=== PATIENT | female | born 1995 | race Caucasian/White ===

== ENCOUNTER 2017-05-20 21:08 | Emergency (ER) | payer MEDICAID ==
[~2017-05-20] VITALS: Ht 162.6 cm; Wt 86.5 kg
[2017-05-20 21:32] VITALS: BP 139/85
== END 2017-05-20 21:33 | disposition home or self-care (01) ==
LOC: ER 21:09
DX: I10 Essential (primary) hypertension (principal); J06.9 Acute upper respiratory infection, unspecified; Z91.040 Latex allergy status
CPT/HCPCS: 99281

== ENCOUNTER 2017-10-09 20:34 | Emergency (ER) | payer MEDICAID, OTHER ==
[~2017-10-09] VITALS: Ht 162.6 cm; Wt 92.5 kg
[2017-10-09 20:53] VITALS: BP 145/75
[2017-10-09 21:09] LABS: URINE HCG NEGATIVE (NEG)
[2017-10-09 21:17] LABS: BASOPHILS % (AUTO) 0.3 % (0-1); EOSINOPHILS # (AUTO) 0.7 X10'3 (0-0.9); HEMATOCRIT 34.9 % (35.0-45.0); HEMOGLOBIN 12.3 g/dl (12.0-16.0); LYMPHOCYTES # (AUTO) 4.3 X10'3 (1.1-4.8); LYMPHOCYTES % (AUTO) 31.8 % (21-51); MEAN CORPUSCULAR HEMOGLOBIN 30.3 PG (27.0-31.0); MEAN CORPUSCULAR HGB CONC 35.1 % (33.0-36.5); MEAN CORPUSCULAR VOLUME 86.3 FL (78-98); MEAN PLATELET VOLUME 7.4 FL (7.4-10.4); MONOCYTES # (AUTO) 0.9 X10'3 (0-0.9); MONOCYTES % (AUTO) 6.7 % (2-12); NEUTROPHILS # (AUTO) 7.5 X10'3 (1.8-7.7); NEUTROPHILS % (AUTO) 56.2 % (42-75); PLATELET COUNT 293 X10'3 (140-440); RED BLOOD COUNT 4.05 X10'6 (4.20-5.60); RED CELL DISTRIBUTION WIDTH 12.6 % (11.5-14.5); WHITE BLOOD COUNT 13.4 X10'3 (4.5-11.0)
[2017-10-09 21:30] LABS: ALBUMIN 3.8 G/DL (3.4-5.0); ANION GAP 7 (8-16); BILIRUBIN,TOTAL 0.2 MG/DL (0.1-1.0); BLOOD UREA NITROGEN 10 MG/DL (7-18); CHLORIDE 102 MMOL/L (99-107); CREATININE 0.91 MG/DL (0.40-0.90); GLUCOSE 96 MG/DL (70-104); POTASSIUM 3.8 MMOL/L (3.5-5.1); SODIUM 138 MMOL/L (135-145); TOTAL CARBON DIOXIDE 28.7 MMOL/L (24-32); TOTAL PROTEIN 7.6 G/DL (6.4-8.2); eGFR 76 ML/MIN
[2017-10-09 21:30] LABS: CLARITY,URINE CLEAR (Clear); COLOR,URINE YELLOW (Yellow); GLUCOSE, URINE NEGATIVE (Neg); KETONES,URINE NEGATIVE (Neg); LEUKOCYTE ESTERASE ,URINE NEGATIVE (Neg); NITRITES, URINE NEGATIVE (Neg); OCCULT BLOOD,URINE NEGATIVE (Neg); PROTEIN,URINE NEGATIVE (Neg); UROBILINOGEN,URINE 0.2 E.U/dL (0.2-1.0)
[2017-10-09 21:31] LABS: ALANINE AMINOTRANSFERASE 20 U/L (12-78); ALKALINE PHOSPHATASE 65 IU/L (46-116); ASPARTATE AMINO TRANSFERASE 10 U/L (10-37); LIPASE 172 U/L (73-393)
[2017-10-09] MEDS ORDERED: LIDOcaine Viscous 15ml cup MM STA (21:35)
[2017-10-09] MEDS ORDERED: mag hydrox/Alum hydrox/simeth 30ml oral suspension PO ONE (21:35)
[2017-10-09] MEDS ORDERED: pantoprazole 40mg Tablet.DR PO STA (21:35)
[2017-10-09 21:36] LABS: UA COLLECTION TYPE CLN CATCH MIDSTREAM
[2017-10-09] MEDS ORDERED: PANT-47 PO (22:34)
== END 2017-10-09 22:42 | disposition home or self-care (01) ==
LOC: ER 20:35
DX: K29.00 Acute gastritis without bleeding (principal); I10 Essential (primary) hypertension; Z91.040 Latex allergy status; Z79.899 Other long term (current) drug therapy
CPT/HCPCS: 36415; 76700; 80053; 81003; 81025; 83690; 85025; 99285

== ENCOUNTER 2018-09-17 09:10 | Emergency (ER) | payer MEDICAID, OTHER ==
[~2018-09-17] VITALS: Ht 162.6 cm; Wt 75.0 kg
[~2018-09-17 09:10] MED LIST: PANT-47 PO
[2018-09-17] MEDS ORDERED: magnesium citrate 296ml oral solution PO ONE (09:50)
[2018-09-17 10:35] LABS: CLARITY,URINE SLIGHTLY CLOUDY (Clear); COLOR,URINE ORANGE (Yellow); UA COLLECTION TYPE STRAIGHT CATH
[2018-09-17 10:42] LABS: URINE HCG NEGATIVE (NEG)
[2018-09-17 10:44] LABS: BACTERIA,URINE FEW /HPF (Neg); HYALINE CASTS 0-3 /LPF (NEGATIVE); MUCUS STRANDS MODERATE /LPF (Neg); RBC,URINE 0-2 /HPF (0-2); SQUAMOUS EPITHELIAL CELL,UR FEW /LPF (FEW); WBC,URINE 0-4 /HPF (0-4)
[2018-09-17] MEDS ORDERED: POLY17PO10 PO (11:13)
[2018-09-17] MEDS ORDERED: NITR100C6 PO (11:13)
[2018-09-17 11:16] VITALS: BP 132/77
== END 2018-09-17 11:51 | disposition home or self-care (01) ==
LOC: ER 09:11
DX: N39.0 Urinary tract infection, site not specified (principal); K59.00 Constipation, unspecified; I10 Essential (primary) hypertension; Z91.040 Latex allergy status; Z79.899 Other long term (current) drug therapy; Z98.890 Other specified postprocedural states
CPT/HCPCS: 51701; 51702; 81001; 81025; 99283; 99284

== ENCOUNTER 2020-11-26 09:58 | Emergency (ER) | payer BC ==
[~2020-11-26] VITALS: Ht 162.6 cm; Wt 87.3 kg
[~2020-11-26 09:58] MED LIST changes: +NITR100C6 PO
[2020-11-26] MEDS ORDERED: normal saline 1000ML IV soln IVB ONE (10:10)
[2020-11-26] MEDS ORDERED: ondansetron/PF 4mg/2ml inj IV ONE (10:10)
[2020-11-26] MEDS ORDERED: morphine 4 MG/ML inj SYRINge IV PRN (10:10)
[2020-11-26 10:35] LABS: BASOPHILS # (AUTO) 0.1 X10'3 (0-0.2); BASOPHILS % (AUTO) 1.4 % (0-1); EOSINOPHILS # (AUTO) 0.2 X10'3 (0-0.9); EOSINOPHILS % (AUTO) 2.3 % (0-6); HEMATOCRIT 40.9 % (35.0-45.0); HEMOGLOBIN 14.1 g/dl (12.0-16.0); LYMPHOCYTES # (AUTO) 3.2 X10'3 (1.1-4.8); LYMPHOCYTES % (AUTO) 43.1 % (21-51); MEAN CORPUSCULAR HEMOGLOBIN 31.2 PG (27.0-31.0); MEAN CORPUSCULAR HGB CONC 34.5 g/dL (33.0-36.5); MEAN CORPUSCULAR VOLUME 90.5 FL (78-98); MEAN PLATELET VOLUME 7.8 FL (7.4-10.4); MONOCYTES # (AUTO) 0.6 X10'3 (0-0.9); NEUTROPHILS # (AUTO) 3.4 X10'3 (1.8-7.7); NEUTROPHILS % (AUTO) 45.2 % (42-75); PLATELET COUNT 314 X10'3 (140-440); RED BLOOD COUNT 4.52 X10'6 (4.20-5.60); RED CELL DISTRIBUTION WIDTH 12.7 % (11.5-14.5); WHITE BLOOD COUNT 7.5 X10'3 (4.5-11.0)
[2020-11-26] MEDS ORDERED: ketorolac trometh. 30mg/ml inj. IV ONE (10:45)
[2020-11-26 10:52] LABS: ALANINE AMINOTRANSFERASE 26 U/L (12-78); ALBUMIN 4.1 G/DL (3.4-5.0); ALKALINE PHOSPHATASE 61 IU/L (46-116); ANION GAP 11 (8-16); ASPARTATE AMINO TRANSFERASE 17 U/L (10-37); BILIRUBIN,TOTAL 0.9 MG/DL (0.1-1.0); BLOOD UREA NITROGEN 10 MG/DL (7-18); BUN/CREATININE RATIO 13.3 (6.6-38.0); CALCIUM 8.7 MG/DL (8.5-10.1); CHLORIDE 104 MMOL/L (99-107); CREATININE 0.75 MG/DL (0.40-0.90); GLUCOSE 111 MG/DL (70-104); LIPASE 136 U/L (73-393); POTASSIUM 3.9 MMOL/L (3.5-5.1); SODIUM 140 MMOL/L (135-145); TOTAL CARBON DIOXIDE 25.3 MMOL/L (24-32); TOTAL PROTEIN 8.2 G/DL (6.4-8.2); eGFR > 90 ML/MIN
[2020-11-26] MEDS ORDERED: tamsulosin 0.4mg capsule PO STA (11:32)
[2020-11-26] MEDS ORDERED: HYDROcodone/acetaminophen 5mg/325mg tablet PO ONE (11:35)
[2020-11-26] MEDS ORDERED: FLO0.4C PO ×2 (11:40)
[2020-11-26] MEDS ORDERED: HYDR-3965 PO ×2 (11:40)
[2020-11-26] MEDS ORDERED: AZIT250T2 PO ×2 (11:40)
[2020-11-26] MEDS ORDERED: ONDA4TAB6 PO ×2 (11:40)
[2020-11-26] MEDS ORDERED: NAPR-56 PO ×2 (11:40)
[2020-11-26 12:52] VITALS: BP 130/88
[2020-11-26 13:21] LABS: URINE HCG NEGATIVE (NEG)
[2020-11-26 13:24] LABS: CLARITY,URINE SLIGHTLY CLOUDY (Clear); COLOR,URINE YELLOW (Yellow); GLUCOSE, URINE NEGATIVE (Neg); KETONES,URINE >=80 mg/dl (Neg); LEUKOCYTE ESTERASE ,URINE NEGATIVE (Neg); NITRITES, URINE POSITIVE (Neg); OCCULT BLOOD,URINE TRACE-INTACT (Neg); PROTEIN,URINE 30 mg/dl (Neg)
[2020-11-26 13:27] LABS: UA COLLECTION TYPE CLN CATCH MIDSTREAM
[2020-11-26 13:39] LABS: BACTERIA,URINE 4+ /HPF (Neg); MUCUS STRANDS MODERATE /LPF (Neg); RBC,URINE 0-2 /HPF (0-2); SQUAMOUS EPITHELIAL CELL,UR MODERATE /LPF (FEW)
[2020-11-26 13:40] LABS: COARSE GRANULAR CAST 0-3 /LPF (NEGATIVE)
--- NOTE | 2020-11-29 16:22 | NUR ---
PT CALLED REGARDING VISIT IN 11/26, NO ANSWER, UNABLE TO LEAVE MSG DUE TO VOICE MAILBOX WAS FULL
== END 2020-11-26 13:00 | disposition home or self-care (01) ==
LOC: ER 09:58
DX: N20.1 Calculus of ureter (principal); U07.1 COVID-19; J12.82 Pneumonia due to coronavirus disease 2019; I10 Essential (primary) hypertension; Z91.040 Latex allergy status; Z79.899 Other long term (current) drug therapy
CPT/HCPCS: 36415; 71045; 74176; 80053; 81001; 81025; 83690; 85025; 87077; 87088; 87186; 96361; 96374; 96375; 99285; J1885; J2270; J2405; J7030

== ENCOUNTER 2020-11-28 14:31 | Inpatient (IN) | payer BC ==
[~2020-11-28] VITALS: Ht 162.6 cm; Wt 87.0 kg
[~2020-11-28 14:31] MED LIST changes: +AZIT250T2 PO; +FLO0.4C PO; +HYDR-3965 PO; +NAPR-56 PO; +ONDA4TAB6 PO
[2020-11-28] MEDS ORDERED: normal saline 1000ML IV soln IVB ONE ×3 (15:35→21:15)
[2020-11-28] MEDS ORDERED: normal saline 1000ml 1,000 ML IV ONE (15:40)
[2020-11-28] MEDS ORDERED: acetaminophen 325mg tablet PO ONE ×2 (15:40)
[2020-11-28 15:52] LABS: BASOPHILS % (AUTO) 0.1 % (0-1); EOSINOPHILS % (AUTO) 0.4 % (0-6); HEMATOCRIT 34.9 % (35.0-45.0); HEMOGLOBIN 12.1 g/dl (12.0-16.0); LYMPHOCYTES # (AUTO) 0.3 X10'3 (1.1-4.8); LYMPHOCYTES % (AUTO) 4.9 % (21-51); MEAN CORPUSCULAR HEMOGLOBIN 31.5 PG (27.0-31.0); MEAN CORPUSCULAR HGB CONC 34.7 g/dL (33.0-36.5); MEAN CORPUSCULAR VOLUME 90.6 FL (78-98); MEAN PLATELET VOLUME 7.9 FL (7.4-10.4); MONOCYTES # (AUTO) 0.1 X10'3 (0-0.9); MONOCYTES % (AUTO) 0.8 % (2-12); NEUTROPHILS % (AUTO) 93.8 % (42-75); PLATELET COUNT 204 X10'3 (140-440); RED BLOOD COUNT 3.86 X10'6 (4.20-5.60); RED CELL DISTRIBUTION WIDTH 12.7 % (11.5-14.5); WHITE BLOOD COUNT 6.4 X10'3 (4.5-11.0)
[2020-11-28 16:40] LABS: ALANINE AMINOTRANSFERASE 29 U/L (12-78); ALBUMIN 3.2 G/DL (3.4-5.0); ALBUMIN/GLOBULIN RATIO 0.9 (1.1-1.5); ALKALINE PHOSPHATASE 143 IU/L (46-116); ANION GAP 12 (8-16); ASPARTATE AMINO TRANSFERASE 23 U/L (10-37); BLOOD UREA NITROGEN 9 MG/DL (7-18); BUN/CREATININE RATIO 7.8 (6.6-38.0); CALCIUM 7.8 MG/DL (8.5-10.1); CHLORIDE 106 MMOL/L (99-107); CREATININE 1.16 MG/DL (0.40-0.90); GLUCOSE 110 MG/DL (70-104); MAGNESIUM 1.8 MG/DL (1.5-2.4); POTASSIUM 3.4 MMOL/L (3.5-5.1); SODIUM 140 MMOL/L (135-145); TOTAL PROTEIN 6.8 G/DL (6.4-8.2); eGFR 56 ML/MIN
[2020-11-28 18:57] LABS: CLARITY,URINE CLOUDY (Clear); GLUCOSE, URINE NEGATIVE (Neg); KETONES,URINE 15 mg/dl (Neg); LEUKOCYTE ESTERASE ,URINE LARGE (Neg); NITRITES, URINE POSITIVE (Neg); OCCULT BLOOD,URINE LARGE (Neg); PH,URINE 5.5 (4.8-8.0); PROTEIN,URINE 100 mg/dl (Neg)
[2020-11-28 18:58] LABS: COLOR,URINE DARK YELLOW (Yellow); UA COLLECTION TYPE CLN CATCH MIDSTREAM
[2020-11-28 19:03] LABS: WBC,URINE TNTC /HPF (0-4)
[2020-11-28 19:04] LABS: BACTERIA,URINE 4+ /HPF (Neg); MUCUS STRANDS MODERATE /LPF (Neg); RBC,URINE 0-2 /HPF (0-2); SQUAMOUS EPITHELIAL CELL,UR MODERATE /LPF (FEW)
[2020-11-28 19:05] LABS: HYALINE CASTS 0-3 /LPF (NEGATIVE); WBC CLUMPS,URINE FEW /HPF (NEGATIVE)
[2020-11-28] MEDS ORDERED: CefTRIAXone 2gm/D5W 50ml BAG 50 ML IV ONE (19:15)
[2020-11-28] MEDS ORDERED: temazepam 15mg capsule PO PRN (21:00)
[2020-11-28] MEDS ORDERED: piperacillin/tazo 3.375gm/50ml 50 ML IV ONE (21:15)
[2020-11-28] MEDS ORDERED: vancomycin/NS 1 GM ADD-VANTAGE 250 ML IV ONE (21:15)
[2020-11-28] MEDS ORDERED: morphine 2 MG/ML inj. syringe IV PRN ×2 (22:30)
[2020-11-28] MEDS ORDERED: magnesium hydroxide 30ml (MOM) UD suspension PO PRN (22:30)
[2020-11-28] MEDS ORDERED: mag hydrox/Alum hydrox/simeth 30ml oral suspension PO PRN (22:30)
[2020-11-28] MEDS ORDERED: HYDROcodone/acetaminophen 5mg/325mg tablet PO PRN (22:30)
[2020-11-28] MEDS ORDERED: HYDROmorphone inj. 0.5 MG/0.5 ML DISP.SYRIN IV PRN (22:30)
[2020-11-28] MEDS ORDERED: HYDROcodone/acetaminophen 10/325mg tab PO PRN (22:30)
[2020-11-28] MEDS ORDERED: bisacodyl 10mg suppository rectal RC PRN (22:30)
[2020-11-28] MEDS ORDERED: diphenhydrAMINE 25mg capsule PO PRN (22:30)
[2020-11-28] MEDS ORDERED: acetaminophen 650mg rectal suppository RC PRN (22:30)
[2020-11-28] MEDS: normal saline 1000ml 1,000 ML IV SCH (22:30)
[2020-11-28] MEDS ORDERED: ondansetron 4mg rapidly disintigrating tab PO PRN (22:30)
[2020-11-28] MEDS ORDERED: ondansetron/PF 4mg/2ml inj IV PRN (22:30)
[2020-11-28] MEDS ORDERED: acetaminophen 325mg tablet PO PRN (22:30)
[2020-11-28] MEDS ORDERED: diphenhydrAMINE 50 mg/ml inj IV PRN (22:30)
[2020-11-28 22:52] LABS: HEMOGLOBIN A1C 5.3 % (4.5-6.2)
[2020-11-28] MEDS ORDERED: LISI-790 PO (22:55)
[2020-11-28] MEDS ORDERED: AZIT-21 PO (22:55)
[2020-11-28] MEDS ORDERED: VALA500T41 PO (22:55)
[2020-11-28] MEDS ORDERED: NAPR-996 PO (22:55)
[2020-11-28] MEDS ORDERED: FLO0.4C PO (22:55)
[2020-11-28] MEDS ORDERED: ONDA-103 PO (22:55)
[2020-11-28 23:04] LABS: CREATINE KINASE 22 U/L (26-192); LIPASE 54 U/L (73-393)
[2020-11-28 23:15] LABS: PHOSPHORUS 1.2 MG/DL (2.3-4.5)
[2020-11-28] MEDS: dexamethasone inj 6 MG in normal saline 50ml IV soln 50 ML IV SCH (23:18)
[2020-11-28 23:28] LABS: D-DIMER 3.96 MG/L FEU (0-0.50); PARTIAL THROMBOPLASTIN TIME 29 SECONDS (22-32)
[2020-11-28] MEDS ORDERED: ALBUTEROL INHALER 1 PUFF/90 MCG INHALER IH PRN (23:45)
[2020-11-29] VITALS (16 sets, daily range): BP systolic 119–169; BP diastolic 71–114
[2020-11-29 01:49] LABS: URINE AMPHETAMINE SCREEN NEGATIVE (Neg); URINE BARBITUATE SCREEN NEGATIVE (Neg); URINE BENZODIAZEPINES SCREEN NEGATIVE (Neg); URINE CANNABINOID SCREEN NEGATIVE (Neg); URINE COCAINE SCREEN NEGATIVE (Neg); URINE METHADONE SCREEN NEGATIVE (Neg); URINE OPIATE SCREEN POSITIVE (Neg); URINE PHENCYCLIDINE SCREEN NEGATIVE (Neg)
[2020-11-29 02:41] LABS: BASOPHILS % (AUTO) 0.1 % (0-1); EOSINOPHILS % (AUTO) 0.1 % (0-6); HEMATOCRIT 30.4 % (35.0-45.0); HEMOGLOBIN 10.4 g/dl (12.0-16.0); LYMPHOCYTES # (AUTO) 0.4 X10'3 (1.1-4.8); LYMPHOCYTES % (AUTO) 2.5 % (21-51); MEAN CORPUSCULAR HEMOGLOBIN 30.8 PG (27.0-31.0); MEAN CORPUSCULAR HGB CONC 34.1 g/dL (33.0-36.5); MEAN CORPUSCULAR VOLUME 90.5 FL (78-98); MEAN PLATELET VOLUME 8.3 FL (7.4-10.4); MONOCYTES # (AUTO) 0.5 X10'3 (0-0.9); MONOCYTES % (AUTO) 3.2 % (2-12); NEUTROPHILS # (AUTO) 14.6 X10'3 (1.8-7.7); NEUTROPHILS % (AUTO) 94.1 % (42-75); PLATELET COUNT 165 X10'3 (140-440); RED BLOOD COUNT 3.36 X10'6 (4.20-5.60); RED CELL DISTRIBUTION WIDTH 12.6 % (11.5-14.5); WHITE BLOOD COUNT 15.5 X10'3 (4.5-11.0)
[2020-11-29 02:53] LABS: ALANINE AMINOTRANSFERASE 34 U/L (12-78); ALBUMIN 2.7 G/DL (3.4-5.0); ALBUMIN/GLOBULIN RATIO 0.8 (1.1-1.5); ALKALINE PHOSPHATASE 110 IU/L (46-116); ANION GAP 12 (8-16); ASPARTATE AMINO TRANSFERASE 28 U/L (10-37); BILIRUBIN,TOTAL 0.6 MG/DL (0.1-1.0); BLOOD UREA NITROGEN 8 MG/DL (7-18); BUN/CREATININE RATIO 8.9 (6.6-38.0); CALCIUM 7.3 MG/DL (8.5-10.1); CHLORIDE 111 MMOL/L (99-107); GLUCOSE 133 MG/DL (70-104); POTASSIUM 3.9 MMOL/L (3.5-5.1); SODIUM 143 MMOL/L (135-145); TOTAL CARBON DIOXIDE 20.2 MMOL/L (24-32); TOTAL PROTEIN 6.1 G/DL (6.4-8.2); eGFR 75 ML/MIN
[2020-11-29] MEDS ORDERED: Neutra Phos packet PO PRN (03:05)
[2020-11-29] MEDS ORDERED: sodium phosphate inj. 30 MMOL in dextrose 5%-water 250 ML IV PRN (03:05)
[2020-11-29] MEDS ORDERED: sodium phosphate inj. 15 MMOL in dextrose 5%-water 250 ML IV PRN (03:05)
[2020-11-29] MEDS ORDERED: CefTRIAXone/D5W-Rocephin 1gm 50 ML IV SCH (08:00)
[2020-11-29] MEDS ORDERED: heparin, porcine 5000 units/ml vial SQ SCH (08:00)
[2020-11-29] MEDS ORDERED: potassium phosphate inj 30 MMOL in normal saline 500ml IV soln 500 ML IV ONE (08:05)
[2020-11-29] MEDS: normal saline 1000ml 1,000 ML IV SCH ×2 (08:30→21:48)
[2020-11-29 09:51] LABS: D-DIMER 4.27 MG/L FEU (0-0.50)
[2020-11-29 09:52] LABS: C-REACTIVE PROTEIN 21.03 MG/DL (0.0-0.5); PHOSPHORUS 3.5 MG/DL (2.3-4.5)
[2020-11-29] MEDS: pantoprazole 40mg Tablet.DR PO SCH (10:17)
[2020-11-29] MEDS: dexamethasone inj 6 MG in normal saline 50ml IV soln 50 ML IV SCH (10:19)
--- NOTE | 2020-11-29 11:40 | NUR ---
PAGER ID: [phone] MESSAGE: Re: Gabi Castanon. Room: [address] Positive blood cultures Gram + cocci clusters, aerobic bottle drawn on 11/28. -[facility] #[id number] -Dr. Wall paged concerning Pt's positive blood cultures.
[2020-11-29] MEDS: docusate sod 100mg capsule PO SCH ×2 (13:11→20:00)
[2020-11-29 15:06] LABS: PREOP URINE HCG NEGATIVE (NEGATIVE)
[2020-11-29] MEDS ORDERED: labetalol 20mg/4ml (5mg/ml) syringe IV PRN (17:10)
[2020-11-29] MEDS ORDERED: fentaNYL/PF 50MCG/1 ML 2ML syringe IV PRN ×2 (17:10)
[2020-11-29] MEDS ORDERED: ringers solution, lacted 1,000 ML IV SCH (17:10)
[2020-11-29] MEDS ORDERED: morphine 4 MG/ML inj SYRINge IV PRN (17:10)
[2020-11-29] MEDS ORDERED: morphine 2 MG/ML inj. syringe IV PRN (17:10)
[2020-11-29] MEDS ORDERED: ondansetron/PF 4mg/2ml inj IV PRN (17:10)
[2020-11-29] MEDS ORDERED: hydrALAZINE 20mg/ml inj. IV PRN (17:10)
[2020-11-29] MEDS ORDERED: MIDAZolam 1 MG/ML 5ML VIAL ONE (17:11)
[2020-11-29] MEDS ORDERED: fentaNYL/PF 50MCG/1 ML 2ML syringe ONE (17:11)
[2020-11-29] MEDS ORDERED: ondansetron/PF 4mg/2ml inj ONE (17:27)
[2020-11-29] MEDS ORDERED: dexamethasone sod phosphate 10mg/ml inj ONE (17:27)
--- NOTE | 2020-11-29 18:00 | NUR ---
RECOVERED PT IN OR, report given by Anesthesiologist AND TIME STUDY ANALYST. PT AWAKE, DENIES PAIN, DERMATOME LEVEL L-1, NO DRSG'S OR DRAINS. Addendum: 11/29/20 at 1922 by Darshana Prabhakar RN Amended: Links added.
--- NOTE | 2020-11-29 18:30 | NUR ---
Problems reprioritized. Patient report given, questions answered & plan of care reviewed with Jeffrey BRUNO.
--- NOTE | 2020-11-29 18:50 | NUR ---
Report called to receiving nurse. Transferred via GURNEY, NO Belongings. PT TRANSFERRED OVER ONTO BED W/ASSITANCE OF RECEIVING RN. PT REMAINS W/O CHANGE, COMFORTABLE, LOOKING FORWARD TO EATING. Special Issues communicated to receiving nurse. YES. Addendum: 11/29/20 at 1925 by Darshana Prabhakar RN Amended: Links added.
--- NOTE | 2020-11-29 19:17 | NUR ---
1829 received report from KIANA Dyer was in recovery. 1899 patient came back from recovery, ALOX4,
[2020-11-29] MEDS: enoxaparin 30mg/0.3ml syringe SUBCUT SCH ×2 (20:00→21:07)
[2020-11-29] MEDS: enoxaparin 60mg/0.6ml syringe SUBCUT SCH ×2 (20:00→21:05)
[2020-11-29] MEDS ORDERED: lisinopril 2.5mg tablet PO ONE (20:45)
--- NOTE | 2020-11-29 21:00 | NUR ---
Held Lovenox 30mg and 60mg dose to equal 90mg per charge nurse and pharmacist. pt had kidney stone removal and stent placed in left urter, with a spinal tap.
[2020-11-29] MEDS: lactobacillus rhamnosus 10,000 MMU CELLS/CAPSULE PO SCH (21:04)
[2020-11-29] MEDS ORDERED: lisinopril 5mg tablet PO ONE (21:30)
[2020-11-29] MEDS: CefTRIAXone/D5W-Rocephin 1gm 50 ML IV SCH (21:42)
[2020-11-30] VITALS: BP 148/91
[2020-11-30 04:05] VITALS: BP 144/80
[2020-11-30] MEDS: normal saline 1000ml 1,000 ML IV SCH ×2 (04:30→08:46)
[2020-11-30 06:01] LABS: D-DIMER 1.73 MG/L FEU (0-0.50)
[2020-11-30 06:02] LABS: BASOPHILS % (AUTO) 0.1 % (0-1); EOSINOPHILS % (AUTO) 0 % (0-6); HEMATOCRIT 31.7 % (35.0-45.0); HEMOGLOBIN 10.5 g/dl (12.0-16.0); LYMPHOCYTES # (AUTO) 1.1 X10'3 (1.1-4.8); LYMPHOCYTES % (AUTO) 7.3 % (21-51); MEAN CORPUSCULAR HEMOGLOBIN 30.8 PG (27.0-31.0); MEAN CORPUSCULAR HGB CONC 33.3 g/dL (33.0-36.5); MEAN CORPUSCULAR VOLUME 92.5 FL (78-98); MEAN PLATELET VOLUME 9.8 FL (7.4-10.4); MONOCYTES % (AUTO) 6.5 % (2-12); NEUTROPHILS % (AUTO) 86.1 % (42-75); PLATELET COUNT 240 X10'3 (140-440); RED BLOOD COUNT 3.42 X10'6 (4.20-5.60); RED CELL DISTRIBUTION WIDTH 13.4 % (11.5-14.5); WHITE BLOOD COUNT 15.1 X10'3 (4.5-11.0)
[2020-11-30 06:06] LABS: ALANINE AMINOTRANSFERASE 45 U/L (12-78); ALBUMIN 2.5 G/DL (3.4-5.0); ALBUMIN/GLOBULIN RATIO 0.7 (1.1-1.5); ALKALINE PHOSPHATASE 99 IU/L (46-116); ANION GAP 10 (8-16); ASPARTATE AMINO TRANSFERASE 29 U/L (10-37); BILIRUBIN,TOTAL 0.3 MG/DL (0.1-1.0); BLOOD UREA NITROGEN 12 MG/DL (7-18); BUN/CREATININE RATIO 16.9 (6.6-38.0); C-REACTIVE PROTEIN 10.88 MG/DL (0.0-0.5); CHLORIDE 111 MMOL/L (99-107); CREATININE 0.71 MG/DL (0.40-0.90); GLUCOSE 145 MG/DL (70-104); PHOSPHORUS 2.9 MG/DL (2.3-4.5); POTASSIUM 4.2 MMOL/L (3.5-5.1); SODIUM 144 MMOL/L (135-145); TOTAL CARBON DIOXIDE 22.7 MMOL/L (24-32); TOTAL PROTEIN 6.2 G/DL (6.4-8.2); eGFR > 90 ML/MIN
--- NOTE | 2020-11-30 06:41 | NUR ---
gave report to KIANA Meléndez
--- NOTE | 2020-11-30 06:53 | NUR ---
Patient in room COVID 06. I have received report from Jeffrey BRUNO and had the opportunity to ask questions and assume patient care.
[2020-11-30 08:00] VITALS: BP 149/92
[2020-11-30] MEDS: enoxaparin 60mg/0.6ml syringe SUBCUT SCH (08:40)
[2020-11-30] MEDS: docusate sod 100mg capsule PO SCH ×2 (08:40→20:00)
[2020-11-30] MEDS: valacyclovir 500mg tablet PO SCH (08:40)
[2020-11-30] MEDS: tamsulosin 0.4mg capsule PO SCH (08:40)
[2020-11-30] MEDS: lisinopril 5mg tablet PO SCH (08:41)
[2020-11-30] MEDS: CefTRIAXone/D5W-Rocephin 1gm 50 ML IV SCH ×2 (08:43→20:37)
[2020-11-30] MEDS: pantoprazole 40mg Tablet.DR PO SCH (08:44)
[2020-11-30] MEDS: lactobacillus rhamnosus 10,000 MMU CELLS/CAPSULE PO SCH ×2 (08:45→20:35)
--- NOTE | 2020-11-30 09:52 | NUR ---
Malnutrition consult: Pt admitted w/ Covid symptoms while she tested +Covid last week per EMR. Pt s/p placement of ureteral stents 11/29, currently on Clear liquid diet consuming avg 41% of meals 11/29 not meeting needs. Discussed w/ RN about advancing pt to Regular diet today. Current wt is consistent w/ previous admits, no edema present. Unable to perform NFPE d/t pt in isolation. At this time, pt does not meet minimum criteria for malnutrition. No N/V/D noted, LBM 11/29. Will continue to monitor PO trends following diet advancement. Recs: 1. Advance to Regular diet as tolerated 2. Bowel care per rx 3. Weekly wts Addendum: 11/30/20 at [address] Amended: Links added.
[2020-11-30 11:00] VITALS: BP 159/98
[2020-11-30 18:00] VITALS: BP 135/58
--- NOTE | 2020-11-30 18:40 | NUR ---
Problems reprioritized. Patient report given, questions answered & plan of care reviewed with Zuri BRUNO. Patient stable at transfer of care.
[2020-11-30] MEDS: enoxaparin 30mg/0.3ml syringe SUBCUT SCH (20:36)
[2020-11-30 22:00] VITALS: BP 118/78
[2020-12-01] MEDS: normal saline 1000ml 1,000 ML IV SCH ×2 (01:18→10:30)
[2020-12-01 02:00] VITALS: BP 113/74
[2020-12-01 06:00] VITALS: BP 149/90
--- NOTE | 2020-12-01 06:00 | NUR ---
Patient in room COVID 06. I have received report from Ronda BRUNO and had the opportunity to ask questions and assume patient care.
[2020-12-01 07:10] LABS: BASOPHILS % (AUTO) 0.3 % (0-1); EOSINOPHILS % (AUTO) 0.1 % (0-6); HEMATOCRIT 30.4 % (35.0-45.0); HEMOGLOBIN 10.2 g/dl (12.0-16.0); LYMPHOCYTES # (AUTO) 2.1 X10'3 (1.1-4.8); LYMPHOCYTES % (AUTO) 13.8 % (21-51); MEAN CORPUSCULAR HEMOGLOBIN 30.9 PG (27.0-31.0); MEAN CORPUSCULAR HGB CONC 33.4 g/dL (33.0-36.5); MEAN CORPUSCULAR VOLUME 92.3 FL (78-98); MEAN PLATELET VOLUME 9.3 FL (7.4-10.4); MONOCYTES # (AUTO) 1.3 X10'3 (0-0.9); MONOCYTES % (AUTO) 8.4 % (2-12); NEUTROPHILS % (AUTO) 77.4 % (42-75); PLATELET COUNT 256 X10'3 (140-440); RED CELL DISTRIBUTION WIDTH 12.9 % (11.5-14.5); WHITE BLOOD COUNT 15.5 X10'3 (4.5-11.0)
[2020-12-01 07:21] LABS: D-DIMER 1.42 MG/L FEU (0-0.50)
[2020-12-01] MEDS: pantoprazole 40mg Tablet.DR PO SCH (07:30)
[2020-12-01 07:43] LABS: ALANINE AMINOTRANSFERASE 58 U/L (12-78); ALBUMIN 2.4 G/DL (3.4-5.0); ALBUMIN/GLOBULIN RATIO 0.7 (1.1-1.5); ALKALINE PHOSPHATASE 94 IU/L (46-116); ANION GAP 12 (8-16); ASPARTATE AMINO TRANSFERASE 22 U/L (10-37); BILIRUBIN,TOTAL 0.3 MG/DL (0.1-1.0); BLOOD UREA NITROGEN 13 MG/DL (7-18); BUN/CREATININE RATIO 16.3 (6.6-38.0); C-REACTIVE PROTEIN 4.59 MG/DL (0.0-0.5); CALCIUM 7.7 MG/DL (8.5-10.1); CHLORIDE 112 MMOL/L (99-107); GLUCOSE 90 MG/DL (70-104); PHOSPHORUS 3.3 MG/DL (2.3-4.5); POTASSIUM 3.6 MMOL/L (3.5-5.1); SODIUM 147 MMOL/L (135-145); eGFR 86 ML/MIN
[2020-12-01] MEDS: CefTRIAXone/D5W-Rocephin 1gm 50 ML IV SCH (07:52)
[2020-12-01] MEDS: lisinopril 5mg tablet PO SCH (07:53)
[2020-12-01] MEDS: lactobacillus rhamnosus 10,000 MMU CELLS/CAPSULE PO SCH (07:53)
[2020-12-01] MEDS: docusate sod 100mg capsule PO SCH (07:54)
[2020-12-01] MEDS: tamsulosin 0.4mg capsule PO SCH (07:54)
[2020-12-01] MEDS: valacyclovir 500mg tablet PO SCH (07:54)
[2020-12-01] MEDS: enoxaparin 60mg/0.6ml syringe SUBCUT SCH (07:55)
[2020-12-01] MEDS: enoxaparin 30mg/0.3ml syringe SUBCUT SCH (07:56)
[2020-12-01 08:08] LABS: TOTAL CELLS COUNTED 100
[2020-12-01 08:09] LABS: PLATELET ESTIMATE NORMAL
--- NOTE | 2020-12-01 10:01 | NUR ---
PAGER ID: [phone] MESSAGE: Patient Gabi Castanon [facility] room 6A has been having increased ectopy. I have printed strips for you to view. Thanks Myrtle ext [phone]
[2020-12-01 11:00] VITALS: BP 144/79
[2020-12-01] MEDS ORDERED: LEVO500T89 PO (11:42)
--- NOTE | 2020-12-01 14:31 | NUR ---
Patient stable for discharge per Dr. Light. PIV DC'd with canula intact, bedside telemetry DC'd. Patient verbalized understanding of discharge instructions, importance of follow up care, as well as new medication regimen. Prescriptions were electronically transmitted to the patients preferred pharmacy, [address] in [place]. The patient was escorted to the lobby by a patient rn wound care to be transferred home by a family member.
== END 2020-12-01 14:00 | disposition home or self-care (01) | DRG 853 ==
LOC: ER 14:31 → ED HOLD 22:36 → COVID IP 11-29 08:30
PROVIDERS: ADMIT Family Medicine; ATTEND Family Medicine
PROC: BT1F1ZZ Fluoroscopy of Left Kidney, Ureter and Bladder using Low Osmolar Contrast (ICD-10-PCS; 2020-11-29)
PROC: 0T778DZ Dilation of Left Ureter with Intraluminal Device, Via Natural or Artificial Opening Endoscopic (ICD-10-PCS; principal; 2020-11-29 17:27)
DX: A41.59 Other Gram-negative sepsis (principal); J12.82 Pneumonia due to coronavirus disease 2019; R65.21 Severe sepsis with septic shock; U07.1 COVID-19; N13.6 Pyonephrosis; N17.9 Acute kidney failure, unspecified; N20.2 Calculus of kidney with calculus of ureter; B96.1 Klebsiella pneumoniae [K. pneumoniae] as the cause of diseases classified elsewhere; E83.39 Other disorders of phosphorus metabolism; R00.1 Bradycardia, unspecified; E86.1 Hypovolemia; R82.4 Acetonuria; E87.6 Hypokalemia; I10 Essential (primary) hypertension; Z79.899 Other long term (current) drug therapy; Z87.442 Personal history of urinary calculi; Z98.891 History of uterine scar from previous surgery; Z91.040 Latex allergy status
CPT/HCPCS: 96361; 96365; 96366; 96368; 99285; Z7506; 36415; 71045; 74176; 74420; 76000; 76770; 80053; 80305; 81001; 81025; 82550; 83036; 83605; 83690; 83735; 83880; 84100; 84145; 85007; 85025; 85379; 85610; 85730; 86140; 87040; 87077; 87081; 87088; 87186; 93005; A4618; C1758; C1769; C2617; G0378; J0696; J1100; J1650; J2250; J2405; J2543; J3010; J3370; J7030; J7120

== ENCOUNTER 2022-02-22 23:00 | Emergency (ER) | payer BC ==
[~2022-02-22 23:00] MED LIST changes: -AZIT250T2 PO; -FLO0.4C PO; -HYDR-3965 PO; +LISI5TAB22 PO; -NAPR-56 PO; +NAPR-996 PO; -NITR100C6 PO; +ONDA-103 PO; -ONDA4TAB6 PO; -PANT-47 PO; +VALA500T41 PO
--- NOTE | 2022-02-23 00:16 | NUR ---
CALLED PT NAME WITH NO ANSWER FOR TRIAGE
--- NOTE | 2022-02-23 00:21 | NUR ---
NO ANSWER IN WR WHEN CALLED
== END 2022-02-23 00:23 | disposition left against medical advice (07) ==
LOC: ER 23:01
DX: M54.2 Cervicalgia (principal); Z53.21 Procedure and treatment not carried out due to patient leaving prior to being seen by health care provider